=== PATIENT | female | born 1980 | race African-American/Black ===

== ENCOUNTER 2021-07-05 03:40 | Emergency (ER) | payer OTHER ==
[~2021-07-05] VITALS: Ht 170.2 cm; Wt 86.3 kg
[2021-07-05 03:45] VITALS: BP 112/73
[2021-07-05] MEDS ORDERED: IBUPROFEN 400 MG TABLET. PO ONE (04:30)
[2021-07-05] MEDS ORDERED: LIDOCAINE 1%/EPI 1:100,000 20 ML VIAL. INJ ONE (04:30)
[2021-07-05] MEDS ORDERED: ACETAMINOPHEN 500 MG TABLET PO ONE (04:30)
--- NOTE | 2021-07-05 05:06 | RAD ---
EXAM: XR RT TOE 2+ VIEWS 07/05/2021 4:37 AM CLINICAL INDICATION: Right great toe nail injury COMPARISON: None TECHNIQUE: 3 views of the right great toenail FINDINGS: No acute fracture. Alignment is normal. Joint spaces are maintained. There is soft tissue gas under the great toe nail. No opaque foreign body. IMPRESSION: No fracture or foreign body. Soft tissue gas deep to the great toe nail. Electronically signed by: Kimberly Rodrigues MD (07/05/2021 5:04 AM) [facility]
--- NOTE | 2021-07-05 05:47 | PHYS DOC ---
Past Medical History Past Surgical History: No Surgical History Smoking Status: Never Smoker Alcohol Use: Occasionally Adult General Chief Complaint Chief Complaint: TOE PROBLEM HPI HPI The patient is a 40-year-old female who is otherwise healthy. She presents for evaluation of a partial right great toenail avulsion sustained prior to arrival when she kicked a suitcase in her hotel room. No other injury during the episode. Tetanus is up-to-date. Review of Systems Review of Systems A 12 point review of systems was completed and was negative except where noted in HPI above. Current Medications Current Medications Current Medications Medications (Trade) Dose Ordered Sig/Brennan Start Time Stop Time Status Last Admin Dose Admin Acetaminophen (Tylenol) 1,000 mg 1X ONCE 07/05/21 04:30 07/05/21 04:31 DC 07/05/21 04:33 1,000 MG Ibuprofen (Motrin) 800 mg 1X ONCE 07/05/21 04:30 07/05/21 04:31 DC 07/05/21 04:34 800 MG Lidocaine/ Epinephrine (LIDOCAINE 1%-EPI 1:100,000 Multi-Dose) 20 ml 1X ONCE 07/05/21 04:30 07/05/21 04:31 DC Allergies Allergies Allergies Coded Allergies Type Severity Reaction Last Updated Verified No Known Drug Allergies 07/05/21 No Physical Exam Physical Exam 40-year-old female appearing nontoxic and in no acute distress. Head is normocephalic and atraumatic. Neck is supple and nontender. Oropharynx is moist. Lungs are clear to auscultation at all stations. There is a normal S1 and S2 without rubs or gallops and capillary refill is appropriate, less than 2 seconds globally. Abdomen is soft, nontender and nondistended. Skin is warm and dry without cyanosis, clubbing or edema. Psychiatrically, the patient demonstrates appropriate mood and affect and is alert. Evaluation of the right lower extremity is remarkable for a nearly complete avulsion of the right great toenail without underlying subungual hematoma or nailbed laceration. Right lower extremity including the right great toe is neurovascularly intact distally with strength out of 5, sensation intact light touch in all nerve distributions, DP and PT pulse 2+, capillary refill less than 2 seconds, foot warm and well- perfused. Current Patient Data Vital Signs Vital Signs Date Time Temp Pulse Resp B/P (MAP) Pulse Ox O2 Delivery O2 Flow Rate FiO2 07/05/21 03:45 98.2 79 16 112/73 (86) 98 Room Air 98.2 EKG EKG [] Radiology/Procedures Radiology/Procedures EXAM: XR RT TOE 2+ VIEWS 07/05/2021 4:37 AM CLINICAL INDICATION: Right great toe nail injury COMPARISON: None TECHNIQUE: 3 views of the right great toenail FINDINGS: No acute fracture. Alignment is normal. Joint spaces are maintained. There is soft tissue gas under the great toe nail. No opaque foreign body. IMPRESSION: No fracture or foreign body. Soft tissue gas deep to the great toe nail. Electronically signed by: Kimberly Rodrigues MD (07/05/2021 5:04 AM) [facility] DICTATED and SIGNED BY: KIMBERLY RODRIGUES MD DATE: 07/05/21500 Course & Med Decision Making Course & Med Decision Making Case discussed with Dr. Moon of podiatry who advises removal of the mostly avulsed right great toenail followed by placement of petroleum gauze and a dry dressing over top of that. This has been completed after a ring block of the affected digit. Patient tolerated the procedure well. Neurovascularly intact to the affected toe post procedure. Will provide a postoperative shoe and patient will be directed to follow-up with podiatry upon her return home to [place]. Will prescribe diclofenac for discomfort. She understands that if she feels worse instead of better or develops other new symptoms of concern that she should return to the emergency department immediately for reevaluation. All questions are answered. Dragon Disclaimer Dragon Disclaimer This electronic medical record was generated, in whole or in part, using a voice recognition dictation system. Departure Departure Impression: Primary Impression: Avulsion of toenail of right foot Disposition: HOME / SELF CARE / HOMELESS Condition: IMPROVED Patient Instructions: Toenail Removal Additional Instructions: Follow-up very closely with your retrimmer immediately upon your return home to [place] for a reevaluation of your symptoms and a discussion of next best steps in care. Call to make an appointment today. Take a 50 mg diclofenac pill every 8 hours as needed for discomfort. Take with food to prevent stomach upset. Change the dressing daily as we discussed. Wear the postoperative shoe to protect and support your injured toe. Return to the emergency department right away for worsening symptoms of any kind or with any other new symptoms of concern. Scripts Diclofenac Potassium (DICLOFENAC POTASSIUM) 50 Mg Tablet 1 TAB PO PRN TID PRN for PAIN, #30 TAB Prov: DARIUS FERNANDEZ MD 07/05/21 DARIUS FERNANDEZ MD Jul 05, 2021 05:47
[2021-07-05] MEDS ORDERED: DICL50TA2 PO (05:56)
== END 2021-07-05 06:00 | disposition home or self-care (01) ==
LOC: ER 03:40
DX: S91.201A Unspecified open wound of right great toe with damage to nail, initial encounter (principal); W22.8XXA Striking against or struck by other objects, initial encounter; Y93.89 Activity, other specified; Y92.89 Other specified places as the place of occurrence of the external cause; Y99.8 Other external cause status
CPT/HCPCS: 11730; 73660; 99284